=== PATIENT | female | born 1980 | race Caucasian/White ===

== ENCOUNTER 2020-10-22 07:39 | Inpatient (IN) ==
[2020-10-22] MEDS ORDERED: OXYTOCIN 30 UNITS/500 ML BAG IV PRN ×2 (09:51→23:02)
[2020-10-22] MEDS ORDERED: LACTATED RINGER'S 1,000 ML IV PRN (09:51)
[2020-10-22 10:20] LABS: Hematocrit (blood only) 37.8 % (37-47); Hemoglobin 12.9 g/dL (12.0-16.0); Mean Corpuscular Hemoglobin 29.5 pg (25-34); Mean Corpuscular Hgb Conc 34.1 g/dL (32-36); Mean Corpuscular Volume 86.3 fL (80-100); Mean Platelet Volume 10.2 fL (7.4-10.4); Platelet Count 201 K/uL (130-400); Red Blood Count 4.38 M/uL (4.2-5.4); White Blood Count 5.69 K/uL (4.8-10.8)
--- NOTE | 2020-10-22 10:49 | Ultrasound Report ---
ULTRASOUND LIMITED CLINICAL HISTORY: Assess viability. COMPARISON STUDY: No priors. FINDINGS: Real-time grayscale and color Doppler sonography of the fetus and gravid uterus is performe d to assess for viability. There is a single intrauterine gestation. The femoral length measures 2.0 cm, corresponding to an estimated age of 16 weeks 0 days. No cardiac activity is identified. No movement is seen. The placenta is posterior and normal as visualized. The amniotic fluid volum e is grossly normal. IMPRESSION: There is a single intrauterine gestation as above. No movement or cardiac activity is arun ntified consistent with demise. Electronically signed by: Natan Wyman M.D. 10/22/2020 10:48 AM
[2020-10-22] MEDS: miSOPROStoL 200 MCG TAB PV SCH ×3 (11:39→20:15)
--- NOTE | 2020-10-22 12:05 | History & Physical Report ---
Date of Service October 22, 2020 Assessment & Plan (1) demise before 20 weeks with retention of fetus: Plan: Will start induction of labor with Cytotec 400 mcg vaginally every four hours Discussed risks, benefits and complications with using Prostaglandins/Cytotec with patient and Discussed option for D&E with patient as well Admission and Anticipated Discharge Date Admission Date: October 22, 2020 History of Present Illness Chief Complaint: demise Primary Care Provider: Aishwarya Sinclair, DO 40 F [id number] at 17 weeks by dates and 16 weeks by ultrasound that confirms demise. Patient seen yesterday in the office for her routine appointment where provider unable to hear FHT by doppler. Ultrasound done yesterday confirmed demise. Repeat ultrasound was done this morning as requested by patient confirms finding of demise as well. Allergies Allergy/AdvReac Type Severity Reaction Status Date / Time No Known Allergies Allergy Unverified 08/24/15 20:10 Home Medications Medication Instructions Recorded Confirmed Type Multivit/Min/Iron/Fol Ac/Pren 1 tab PO QAM #0 08/23/08 History ( Vitamin) Ibuprofen 600 mg PO Q4H PRN #40 tab 08/27/15 Rx OXYCODONE/ACETAMINOPHEN 5MG/325MG 1 - 2 tab PO Q4H PRN #30 tab 08/27/15 Rx (ROXICET 5MG/325MG) Patient History Medical History Hyperprolactinoma Surgical History Previous section Social History Smoking Status: Never smoker Hx Alcohol Use: No Hx Substance Use: No Preferred Language: Chinese Beliefs That Will Affect Care: None marital status: Current Living Situation: Family Other Information That Helps Us Care for You: No Feels Safe at Home: Yes Safety Concerns: Feels Safe At This Time Assistive Devices: None OB History x1 C/S x2 [employer] History none Review of Systems All systems reviewed & are unremarkable except as noted in HPI & below Physical Exam Constitutional: WD/WN, vitals as above + obese and comfortable Cardiovascular: RRR, no murmur, no edema Gastrointestinal (Abdomen): normal bowel sounds, soft, nontender, no hepatosplenomegaly Skin: no rashes, warm and dry Genitourinary: no vaginal lesions, no adnexal mass normal external appearance Manual OB Exam: + cervical dilation (cervix not dilated and thick) and + station high abdomen is soft and non-tender Results & Data ([facility]) Vital Signs (Past 12 Hours) Vital Signs Temp Pulse Resp BP 10/22/20 11:43 81 125/80 10/22/20 08:16 94 H 123/64 10/22/20 07:57 36.8 C 94 H 20 123/64 Results OB Ultrasound: Obstetrics Ultrasound 10/22/20 Code Status & VTE Plan VTE Prophylaxis Plan VTE Prophylaxis will be ordered: No
--- NOTE | 2020-10-22 16:16 | Labor Progress Brief Note ---
Date of Service October 22, 2020 Assessment & Plan Admission and Anticipated Discharge Date Admission Date: October 22, 2020 Physical Exam Physical Exam: cervix closed and thick. Cytotec 400 mcg placed vaginally Constitutional: WD/WN, vitals as above Results & Data ([facility]) Vital Signs (Past 12 Hours) Vital Signs Temp Pulse Resp BP 10/22/20 16:08 93 H 130/78 10/22/20 11:43 81 125/80 10/22/20 08:16 94 H 123/64 10/22/20 07:57 36.8 C 94 H 20 123/64
[2020-10-22] MEDS ORDERED: BUTORPHANOL TARTRATE 1 MG/ML VIAL IV STA (20:20)
--- NOTE | 2020-10-22 20:22 | Labor Progress Brief Note ---
Date of Service October 22, 2020 Assessment & Plan Admission and Anticipated Discharge Date Admission Date: October 22, 2020 Physical Exam Genitourinary: Manual OB Exam: + cervical dilation 2 cm and + cervical effacement (Cytotec 200 mcg placed vaginally. some bloody show noted on exam) 50% Results & Data ([facility]) Vital Signs (Past 12 Hours) Vital Signs Temp Pulse Resp BP 10/22/20 19:06 36.6 C 88 16 118/77 10/22/20 19:04 88 118/77 10/22/20 16:08 37.2 C 93 H 16 130/78 10/22/20 11:43 81 125/80
[2020-10-22] MEDS ORDERED: BUTORPHANOL TARTRATE 1 MG/ML VIAL ONE (20:23)
--- NOTE | 2020-10-22 22:34 | Delivery Summary ---
Vaginal Delivery Summary Date of Service October 22, 2020 Vaginal Delivery Summary Delivery Note Patient had spontaneous vaginal delivery of stillborn fetus appearing to be a male by my exam. Fetus was macerated and appeared to have a while ago. Cord detached from placenta and after almost an hour waiting for delivery of placenta I placed a ring forceps into cervix where placenta was noted but it appeared top come out in pieces. At this point a decision was then made to bring the patient down to the OR to do a D&C for retained placenta. Patient consents obtained and she is not experiencing any heavy bleeding and is stable at this time. Final sponge and instrument count are correct. EBL 100 ml.
--- NOTE | 2020-10-22 22:35 | Labor Progress Brief Note ---
Date of Service October 22, 2020 Assessment & Plan Admission and Anticipated Discharge Date Admission Date: October 22, 2020 Results & Data ([facility]) Vital Signs (Past 12 Hours) Vital Signs Temp Pulse Resp BP 10/22/20 19:06 36.6 C 88 16 118/77 10/22/20 19:04 88 118/77 10/22/20 16:08 37.2 C 93 H 16 130/78 10/22/20 11:43 81 125/80
[2020-10-22] MEDS ORDERED: fentaNYL citrate 100 MCG/2 ML VIAL ONE (23:01)
[2020-10-22] MEDS ORDERED: bisacodyL 10 MG SUPP PR PRN (23:02)
[2020-10-22] MEDS ORDERED: ACETAMINOPHEN 325 MG TAB PO PRN (23:02)
[2020-10-22] MEDS ORDERED: IBUPROFEN 600 MG TAB PO PRN (23:02)
[2020-10-22] MEDS ORDERED: HYDROCORTISONE ACETATE 25 MG SUPP PR PRN (23:02)
--- NOTE | 2020-10-22 23:05 | Post Operative Brief Note ---
Immediate Post Op Note v1 Date of Surgery October 22, 2020 Pre & Post Diagnosis Operation Date: 10/22/20 22:20 Pre-Op Diagnosis: 1. Retained placenta Post-Op Diagnosis: 1. Same I identified the patient and participated in the time-out.: Yes Procedure Operation Date: 10/22/20 22:20 Actual Procedures p Dilation and Curettage - Gonzales Rincon MD Surgeon Gonzales Rincon MD [employer] none Estimated Blood Loss 300 Findings Consistent with Post-Op Diagnosis placenta Fluids LR 1000 ml Anesthesia Type General Complications none Overlapping Procedure I was present for: the critical portions of procedure. I was immediately available: during the entire case. Back up surgeon: was not required during procedure.
[2020-10-22] MEDS ORDERED: miSOPROStoL 200 MCG TAB ONE (23:24)
[2020-10-22] MEDS ORDERED: ONDANSETRON INJ 2 MG/ML 2 ML VIAL ONE (23:30)
[2020-10-22] MEDS ORDERED: LIDOCAINE 2% MPF LOCAL 5 ML VIAL INFIL ONE (23:30)
[2020-10-22] MEDS ORDERED: DIPHTHERIA/TETANUS/PERTUSSIS 0.5 ML SYR/VIAL IM ONE (23:30)
[2020-10-22] MEDS ORDERED: ROCURONIUM BROMIDE 10 MG/ML 5 ML VIAL IV ONE (23:30)
[2020-10-22] MEDS ORDERED: DEXAMETHASONE SOD INJ 4 MG/ML VIAL ONE (23:30)
[2020-10-22] MEDS ORDERED: SUCCINYLCHOLINE CHLORIDE 20 MG/ML 10 ML VIAL IV ONE (23:30)
[2020-10-23] MEDS ORDERED: ATROPINE SULFATE 0.1 MG/ML 10ML SYR IV PRN (00:14)
[2020-10-23] MEDS ORDERED: ePHEDrine sulfate 50 MG/ML AMP IV PRN (00:14)
--- NOTE | 2020-10-23 00:18 | Anesthesiology Progress Note ---
Date of Service October 23, 2020 Anesthesia Post Procedure Vital Signs Vital Signs: Temp Pulse Resp BP Pulse Ox 10/23/20 00:14 78 105/63 10/23/20 00:13 81 97 10/23/20 00:10 85 101/65 10/23/20 00:08 88 99 10/23/20 00:04 98 H 87 L 10/23/20 00:03 98 H 99 10/22/20 23:58 90 98 10/22/20 23:55 106 H 167/94 H 10/22/20 22:40 78 111/60 10/22/20 22:10 75 118/75 10/22/20 21:55 73 118/71 10/22/20 21:40 77 128/73 10/22/20 19:06 36.6 C 88 16 118/77 10/22/20 19:04 88 118/77 10/22/20 16:08 37.2 C 93 H 16 130/78 10/22/20 11:43 81 125/80 10/22/20 08:16 94 H 123/64 10/22/20 07:57 36.8 C 94 H 20 123/64 Pain Intensity Bilateral Abdomen: Pain Intensity: 1 Transfer of Care Handoff Completed per policy Notes Mental Status: alert / awake / arousable Patient Amnestic to Procedure: Yes Nausea / Vomiting: adequately controlled Pain: adequately controlled Airway Patency, RR, SpO2: stable & adequate BP & HR: stable & adequate Hydration State: stable & adequate Anesthetic Complications: no major complications apparent
--- NOTE | 2020-10-23 00:18 | Anesthesiology Consultation ---
Date of Service October 23, 2020 Assessment & Plan (1) Encounter for pre-operative examination: Chart Review Chart Review: Acceptable Risk for Surgery and Patient NOT seen in Pre Admission Testing Consults Requested none ASA ASA2 Proposed Anesthesia Anesthesia Type: General (+RSI) Risk / Benefits Reviewed With: PT / POA / Parent / Guardian, Accepts Plan and Informed Consent Obtained History Surgery Operation Date: 10/22/20 22:20 Proposed Procedures p Labor Delivery Dilation and Curettage - Gonzales Rincon MD Height/Weight Height: 5 ft 7 in Weight: 99.79 kg Allergies Allergy/AdvReac Type Severity Reaction Status Date / Time No Known Allergies Allergy Unverified 10/22/20 12:33 Medications Home Medications Medication Instructions Recorded Confirmed Last Taken Multivit/Min/Iron/Fol Ac/Pren 1 tab PO QAM #0 08/23/08 10/22/20 Unknown ( Vitamin) Active Medications Generic Name Dose Route Start Last Admin Trade Name Freq PRN Reason Stop Dose Admin Lactated Ringer's 1,000 mls @ 125 mls/hr 10/22/20 09:51 10/22/20 22:21 Lr IV 10/24/20 09:50 125 mls/hr .Q8H PRN Administration L&D Protocol Protocol Oxytocin 30 units in 500 mls @ 333.333 mls/hr 10/22/20 09:51 10/22/20 22:25 Pitocin IV 11/21/20 09:50 Infused .Q1H30M PRN Titration Bleeding Control Protocol 20 UNITS/HR NPO Date Last Intake of Fluids: 10/22/20 Time Last Intake of Fluids: 19:30 Date Last Intake of Solids: 10/22/20 Time Last Intake of Solids: 18:30 Last Intake of Solids Comment: full dinner Past Medical History Medical History Hyperprolactinoma Exercise / Class Metabolic Activity II 4-5 Yardwork/Stairs/Walk up hill Past Surgical History Surgical History Previous section Past Anesthesia History No Hx of Anesthesia Complications and No Family Hx of Anesthesia Complications History of PONV No Hx of PONV and No Hx of Motion Sickness Social History Smoking Status: Never smoker Hx Alcohol Use: No Hx Substance Use: No substance use type: does not use Physical Exam Vital Signs Last Vital Signs Temp 36.6 C 10/22/20 19:06 Pulse 78 10/23/20 00:14 Resp 16 10/22/20 19:06 BP 105/63 10/23/20 00:14 Pulse Ox 97 10/23/20 00:13 ENMT Mouth: no dentition abnormality Thyromental Distance: > or= 3.5 Finger Breadths Mallampati Class: II Neck normal visual inspection Respiratory normal respiratory effort Auscultation: lungs clear to auscultation bilaterally Cardiovascular Rate/Rhythm: regular rate and regular rhythm Psychiatric Orientation: alert Testing Laboratory Results 10/22/20 10:00
--- NOTE | 2020-10-23 05:39 | Operative Report (OR) ---
DATE OF SURGERY: 10/23/2020. PREOPERATIVE DIAGNOSIS: Retained placenta. POSTOPERATIVE DIAGNOSIS: Retained placenta. PROCEDURE: Dilation and curettage. SURGEON: Gonzales Rincon MD STUDIO MUSICIAN: None. ANESTHESIA: General. COMPLICATIONS: None. FINDINGS: Retained placenta. ESTIMATED BLOOD LOSS: 300 mL. TOTAL FLUIDS: 1000 mL. CLINICAL HISTORY: The patient is a 40-year-old female, para 3-0-0-3, at approximately 16-17 weeks' gestation with intrauterine demise confirmed by ultrasound. She had a spontaneous delivery of demise after Cytotec induction. The cord was very, very thin and avulsed from the placenta. The placenta was unable to be delivered vaginally after waiting a significant amount of time. The patient was brought to the OR for a D and C. DESCRIPTION OF PROCEDURE: Under satisfactory general anesthesia, the patient was prepped and draped in the usual sterile fashion. A time out was done. Weighted speculum was placed in the posterior vault of the vagina. A ring forceps was placed on the anterior lip of the cervix. Ring forceps inserted into the cervical canal into the uterus, removing piecemeal parts of the placenta. A large curette was then introduced, curetting and removing a larger portion of the placenta. Ring was then introduced and the majority of the placenta was intact. At the end of the procedure, 800 mcg of Cytotec was placed rectally and Pitocin was started in the IV. No active bleeding was noted at the end of the procedure. All remaining instruments were accounted for and removed. The final sponge, needle, and instrument count were found to be correct. EBL 300 mL. After all remaining instruments were removed from the vagina, the patient was then placed supine on a stretcher and taken to recovery in labor and delivery in stable condition. Job ID: [id number] [facility]
[2020-10-23 06:54] LABS: Hematocrit (blood only) 36.3 % (37-47); Hemoglobin 12.5 g/dL (12.0-16.0); Mean Corpuscular Hemoglobin 29.1 pg (25-34); Mean Corpuscular Hgb Conc 34.4 g/dL (32-36); Mean Corpuscular Volume 84.6 fL (80-100); Platelet Count 198 K/uL (130-400); RDW Coefficient of Variation 13.8 % (11.5-14.5); RDW Standard Deviation 42.3 fL (36.4-46.3); Red Blood Count 4.29 M/uL (4.2-5.4); White Blood Count 9.18 K/uL (4.8-10.8)
[2020-10-23] MEDS ORDERED: FERROUS SULFATE 325 MG TAB PO SCH (08:00)
[2020-10-23] MEDS ORDERED: DOCUSATE SODIUM 100 MG CAP PO SCH (08:00)
[2020-10-23] MEDS ORDERED: PRENATAL VITAMIN 1 TAB PO SCH (08:00)
[2020-10-23] MEDS ORDERED: NON-FORMULARY MEDICATION (Multivit/Min/Iron/Fol Ac/Pren (Prenatal Vitamin) tablet) PO SCH (09:00)
--- NOTE | 2020-10-23 09:20 | Obstetrical Progress Note ---
Date of Service October 23, 2020 Assessment & Plan Admission and Anticipated Discharge Date Admission Date: October 22, 2020 Subjective Patient is seen and examined. She feels well, no complaints. Just sad Ambulating without dizziness Voiding without difficulty Tolerating regular diet with out N&V Bleeding is minimal No fever/ chills/ CP/ SOB/ N&V/ Leg pain Vital Signs Temp Pulse Resp BP Pulse Ox 10/23/20 07:59 36.9 C 76 18 101/62 10/23/20 07:32 76 101/62 10/23/20 06:08 72 97 10/23/20 06:05 79 103/66 10/23/20 06:03 76 98 10/23/20 05:58 74 96 10/23/20 05:53 71 97 10/23/20 05:48 72 96 10/23/20 05:43 73 97 10/23/20 05:38 69 97 10/23/20 05:35 71 108/66 10/23/20 05:33 78 97 10/23/20 05:28 72 98 10/23/20 05:25 97 H 92 10/23/20 05:23 80 97 10/23/20 05:18 74 97 10/23/20 05:13 73 96 10/23/20 05:08 78 97 10/23/20 05:05 69 106/65 10/23/20 05:03 75 97 10/23/20 05:00 36.8 C 16 10/23/20 04:58 76 97 10/23/20 04:53 75 97 10/23/20 04:48 78 96 10/23/20 04:43 71 97 10/23/20 04:38 74 97 10/23/20 04:35 70 104/63 10/23/20 04:33 67 97 10/23/20 04:28 66 97 10/23/20 04:23 68 97 10/23/20 04:18 69 97 10/23/20 04:13 69 97 10/23/20 04:08 68 97 10/23/20 04:05 71 98/63 L 10/23/20 04:03 71 96 10/23/20 03:58 70 96 10/23/20 03:53 69 96 10/23/20 03:48 71 96 10/23/20 03:43 69 97 07/24/21 03:38 72 96 0724/21 03:35 69 100/63 07/24/21 03:33 72 96 0724/21 03:28 73 96 21 03:23 77 97 07/21 03:18 73 96 0724/21 03:13 69 96 24/21 03:08 73 96 24/21 03:05 72 103/64 24/21 03:03 68 97 21 02:58 72 96 21 02:53 70 96 24/21 02:48 73 96 21 02:43 70 96 24/21 02:38 73 96 21 02:35 69 101/62 21 02:33 71 95 10/23/20 02:28 36.8 C 71 16 95 10/23/20 02:23 69 96 21 02:18 76 96 10/23/20 02:13 73 95 10/23/20 02:08 78 95 10/23/20 02:04 78 105/62 24/21 02:03 74 94 2421 01:58 77 95 0724/21 01:54 70 107/64 24/21 01:53 74 94 0724/21 01:48 72 95 24/21 01:47 74 94 24/21 01:44 75 103/63 24/21 01:43 73 95 24/21 01:40 72 94 24/21 01:38 75 95 2421 01:34 73 107/65 0724/21 01:33 74 94 0724/21 01:28 75 95 0724/21 01:26 74 94 0724/21 01:25 16 24/21 01:24 73 100/63 0724/21 01:23 77 95 0724/21 01:18 80 95 0724/21 01:14 76 102/64 0724/21 01:13 77 95 0724/21 01:08 80 95 0724/21 01:04 82 104/68 0724/21 01:03 83 97 0724/21 00:58 78 95 0724/21 00:55 16 07/24/21 00:54 76 103/64 10/23/20 00:53 80 95 10/23/20 00:48 91 H 96 10/23/20 00:44 81 103/65 10/23/20 00:43 84 96 10/23/20 00:40 16 10/23/20 00:38 83 95 10/23/20 00:34 83 106/65 10/23/20 00:33 84 95 10/23/20 00:28 87 96 10/23/20 00:25 99 H 16 92 10/23/20 00:24 85 104/60 10/23/20 00:23 84 97 10/23/20 00:18 80 96 10/23/20 00:14 78 105/63 10/23/20 00:13 81 97 10/23/20 00:10 85 101/65 10/23/20 00:08 88 99 10/23/20 00:04 98 H 87 L 10/23/20 00:03 98 H 99 10/22/20 23:58 90 98 10/22/20 23:55 36.9 C 106 H 16 167/94 H 10/22/20 22:40 78 111/60 10/22/20 22:10 75 118/75 10/22/20 21:55 73 118/71 10/22/20 21:40 77 128/73 Lab Results 10/22/20 10/22/20 10/22/20 Range/Units 10:00 Unknown Unknown WBC 5.69 (4.8-10.8) K/uL RBC 4.38 (4.2-5.4) M/uL Hgb 12.9 (12.0-16.0) g/dL Hct 37.8 (37-47) % MCV 86.3 (80-100) fL MCH 29.5 (25-34) pg MCHC 34.1 (32-36) g/dL RDW Std Deviation 44.0 (36.4-46.3) fL RDW Coeff of Eliza 14.0 (11.5-14.5) % Plt Count 201 (130-400) K/uL MPV 10.2 (7.4-10.4) fL COVID-19 Eval Order Covid19 IDNow atMRIC SARS-CoV-2, RNA, NAAT NEGATIVE (NEGATIVE) 10/23/20 Range/Units 06:30 WBC 9.18 (4.8-10.8) K/uL RBC 4.29 (4.2-5.4) M/uL Hgb 12.5 (12.0-16.0) g/dL Hct 36.3 L (37-47) % MCV 84.6 (80-100) fL MCH 29.1 (25-34) pg MCHC 34.4 (32-36) g/dL RDW Std Deviation 42.3 (36.4-46.3) fL RDW Coeff of Eliza 13.8 (11.5-14.5) % Plt Count 198 (130-400) K/uL MPV 10.0 (7.4-10.4) fL COVID-19 Eval Order SARS-CoV-2, RNA, NAAT (NEGATIVE) PE: General: Alert, orientedx3, NAD, appropriately sad Abd: soft, NT, Perineum intact, Lochia rubra minimal Ext; NT, no edema AP: 40 yo s/p IOL for IUFD, curettage, ppd# 1 VSS Afebrile doing well Desires d/c home Discussed when to call All questions were answered D/C home , f/u in office Results & Data ([facility]) Vital Signs (Past 12 Hours) Vital Signs Temp Pulse Resp BP Pulse Ox 10/23/20 07:59 36.9 C 76 18 101/62 10/23/20 07:32 76 101/62 10/23/20 06:08 72 97 10/23/20 06:05 79 103/66 10/23/20 06:03 76 98 10/23/20 05:58 74 96 10/23/20 05:53 71 97 10/23/20 05:48 72 96 10/23/20 05:43 73 97 10/23/20 05:38 69 97 10/23/20 05:35 71 108/66 10/23/20 05:33 78 97 10/23/20 05:28 72 98 10/23/20 05:25 97 H 92 10/23/20 05:23 80 97 10/23/20 05:18 74 97 10/23/20 05:13 73 96 10/23/20 05:08 78 97 07/24/21 05:05 69 106/65 10/23/20 05:03 75 97 10/23/20 05:00 36.8 C 16 10/23/20 04:58 76 97 10/23/20 04:53 75 97 10/23/20 04:48 78 96 10/23/20 04:43 71 97 10/23/20 04:38 74 97 10/23/20 04:35 70 104/63 10/23/20 04:33 67 97 10/23/20 04:28 66 97 10/23/20 04:23 68 97 10/23/20 04:18 69 97 10/23/20 04:13 69 97 10/23/20 04:08 68 97 10/23/20 04:05 71 98/63 L 10/23/20 04:03 71 96 10/23/20 03:58 70 96 10/23/20 03:53 69 96 10/23/20 03:48 71 96 10/23/20 03:43 69 97 10/23/20 03:38 72 96 10/23/20 03:35 69 100/63 10/23/20 03:33 72 96 10/23/20 03:28 73 96 10/23/20 03:23 77 97 10/23/20 03:18 73 96 10/23/20 03:13 69 96 10/23/20 03:08 73 96 10/23/20 03:05 72 103/64 10/23/20 03:03 68 97 10/23/20 02:58 72 96 10/23/20 02:53 70 96 10/23/20 02:48 73 96 10/23/20 02:43 70 96 10/23/20 02:38 73 96 10/23/20 02:35 69 101/62 10/23/20 02:33 71 95 10/23/20 02:28 36.8 C 71 16 95 10/23/20 02:23 69 96 10/23/20 02:18 76 96 10/23/20 02:13 73 95 10/23/20 02:08 78 95 10/23/20 02:04 78 105/62 10/23/20 02:03 74 94 21 01:58 77 95 21 01:54 70 107/64 10/23/20 01:53 74 94 10/23/20 01:48 72 95 10/23/20 01:47 74 94 10/23/20 01:44 75 103/63 10/23/20 01:43 73 95 10/23/20 01:40 72 94 10/23/20 01:38 75 95 10/23/20 01:34 73 107/65 10/23/20 01:33 74 94 10/23/20 01:28 75 95 10/23/20 01:26 74 94 10/23/20 01:25 16 10/23/20 01:24 73 100/63 10/23/20 01:23 77 95 10/23/20 01:18 80 95 10/23/20 01:14 76 102/64 10/23/20 01:13 77 95 10/23/20 01:08 80 95 10/23/20 01:04 82 104/68 10/23/20 01:03 83 97 10/23/20 00:58 78 95 10/23/20 00:55 16 10/23/20 00:54 76 103/64 10/23/20 00:53 80 95 10/23/20 00:48 91 H 96 10/23/20 00:44 81 103/65 10/23/20 00:43 84 96 10/23/20 00:40 16 10/23/20 00:38 83 95 10/23/20 00:34 83 106/65 10/23/20 00:33 84 95 10/23/20 00:28 87 96 10/23/20 00:25 99 H 16 92 10/23/20 00:24 85 104/60 10/23/20 00:23 84 97 10/23/20 00:18 80 96 10/23/20 00:14 78 105/63 10/23/20 00:13 81 97 10/23/20 00:10 85 101/65 10/23/20 00:08 88 99 10/23/20 00:04 98 H 87 L 10/23/20 00:03 98 H 99 10/22/20 23:58 90 98 10/22/20 23:55 36.9 C 106 H 16 167/94 H 10/22/20 22:40 78 111/60 10/22/20 22:10 75 118/75 10/22/20 21:55 73 118/71 10/22/20 21:40 77 128/73
[2020-10-23] MEDS ORDERED: bisacodyL 5 MG TABEC PO SCH (20:00)
== END 2020-10-23 12:03 | disposition home or self-care (01) | DRG 807 ==
LOC: 4S1 07:39

== ENCOUNTER 2021-11-29 07:30 | Inpatient (IN) ==
--- NOTE | 2021-11-21 13:55 | Anesthesiology Consultation ---
Date of Service November 21, 2021 Assessment & Plan (1) Encounter for pre-operative examination: Chart Review Chart Review: order entry representative initiated Per nursing assessment 11/21/21, patient denies any recent travel. No known Covid positive exposures or Covid related symptoms. Pt tested Covid positive with home test 10/18/21- Covid positive within 11-90 days of surgery. Pt is fully vaccinated for Covid. Preop Covid testing scheduled 11/26/21; pt was also encouraged to call surgeon's office to possibly get PCR test prior to that time to confirm if still Covid positive. If pt positive- will need rescheduled 11 days from Covid positive PCR test or treated as Covid positive pathway. Pt last seen by cardio (telemedicine visit)) 10/20/21= seen for follow up visit. Hx of symptomatic PVCs- increased in and hyperprolactinemia. Planning on upcoming - palpitations improved recently. Increase in fluids helping wiht symptoms. Reviewed previous Zio monitor and ECHO. Symptoms improved with lifestyle changes. Discussed risk vs benefit of medications- cardio does not believe medication necessary at this time- especially with improvement in symptoms. Pt should follow up if increase in palpitations occur . Pt tested Covid positive 10/18/21 with home test- symptoms of congestion and fatigue. Follow up in six months D&C 10/22/20= Done under GA with Grade 1 view with Jones #3. ETT #7.0. History Surgery Operation Date: 11/29/21 07:30 Proposed Procedures p Section in LD - Gale Trjuillo MD Height/Weight Height: 5 ft 7 in Weight: 112.945 kg Allergies Allergy/AdvReac Type Severity Reaction Status Date / Time No Known Allergies Allergy Verified 11/21/21 12:37 Medications Home Medications Medication Instructions Recorded Confirmed Last Taken acetaminophen 325 mg tablet 325 mg PO UD PRN Pain 11/04/21 11/21/21 10/14/21 21:00 (Tylenol) fluticasone propionate 50 1 spray intranasal UD PRN 11/21/21 11/21/21 Unknown mcg/actuation nasal Congestion spray,suspension ibuprofen 600 mg tablet 400 - 600 mg PO UD PRN fever or 11/21/21 11/21/21 Unknown pain prenat.vits,vikki,emg-bqcs-uhmvb 1 tab PO QPM 11/21/21 11/21/21 Unknown Past Medical History Medical History (Updated 11/21/21 @ 14:06 by Radha Dunbar PA-C) Exercise-induced asthma HX, TEENAGER History of colon polyps BENIGN History of COVID-19 + HOME TEST OCTOBER 18 2021 Hyperprolactinemia Follows with endocrinology Pituitary tumor PITUITARY MICROADENOMA- UNDER OBSERVATION - NO MEDS SINCE (USUALLY ON CABERGOLINE FOR HYPERPROLACTINEMIA BUT ON HOLD DURING ) PVCs (premature ventricular contractions) HX / FOLLOWS DR PEREA Past Family History Family History Other Family history of colonic polyps Past Surgical History Surgical History History of colonoscopy History of D&C FOR MISCARRIAGE History of lumpectomy of left breast BENIGN Previous section X2 Social History Smoking Status: Never smoker Hx Alcohol Use: No Hx Substance Use: No substance use type: does not use Testing Echocardiogram Date: 11/04/20 EF: 62% LV Function: normal RWMA: + none Other Findings: no LVH or no diastolic dysfunction Mild TR Other Testing Zio monitor 09/28/20= Patient had a min HR of 62 bpm, max HR of 150 bpm, and avg HR of 87bpm. Predominant underlying rhythm was Sinus Rhythm. 2 Supraventricular Tachycardia runs occurred, the run with the fastest interval lasting 6 beats with a max rate of 128 bpm, the longest lasting 6 beats with an avg rate of 105 bpm. Isolated SVEs were rare (<1.0%), SVE Couplets were rare (<1.0%), and no SVE Triplets were present. Isolated VEs were rare (<1.0%), VE Couplets were rare (<1.0%), and no VE Triplets were present. MRI Sella Turcica 08/26/19= FINDINGS: The pituitary gland appears to enhance homogeneously on the delayed post gadolinium imaging. Previously described focus of hypoenhancement on the dynamic imaging is not appreciated on the current examination. The infundibulum is midline. Signal within the cavernous sinuses is normal. The optic chiasm is normally positioned. The cavernous carotid flow voids are intact. The visualized brain parenchyma is unremarkable in appearance. The orbits are also unremarkable. There is a small mucous retention cyst at the base of the right maxillary sinus. IMPRESSION" No convincing focal hypoenhancement within the pituitary parenchyma on the current study. Brain MRI 06/11/18= 3 mm lesion in the right pituitary gland is suspicious on dynamic imaging for a pituitary microadenoma. One left pituitary gland paramidline 2 mm focus may also represent additional pituitary microadenoma. Grossly unremarkable whole brain imaging.
[~2021-11-29 07:30] MED LIST: CARBOPROST TROMETHAMINE 250 MCG/ML AMPUL ONE; CITRIC ACID/SODIUM CITRATE 15 ML UDC PO SCH; LACTATED RINGER'S 1,000 ML IV SCH; METHYLERGONOVINE MALEATE 0.2 MG/ML AMP ONE; MoRPHine SULFATE PF 1 MG/ML 10 ML AMP/VIAL ONE; ONDANSETRON INJ 2 MG/ML 2 ML VIAL ONE; PHENYLEPHRINE HCL 10 MG/ML VIAL ONE; ceFAZolin 2,000 MG in SYRINGE 0 ML IV SCH; fentaNYL citrate 100 MCG/2 ML VIAL ONE
--- NOTE | 2021-11-29 09:26 | History & Physical Bridge Note ---
Date of Service November 29, 2021 History & Physical Bridge Note I have examined the patient, reviewed the History & Physical and in the interval since the performance of the History & Physical I have noted the following changes of clinical significance: no changes noted She desires permanent tubal sterilization with Repeat CSection today She signed an informed consent.
[2021-11-29] MEDS ORDERED: SODIUM CHLORIDE 0.9% 250 ML IV PRN (10:08)
[2021-11-29 10:20] LABS: Basophils # (auto) 0.01 K/uL (0-0.2); Basophils % (auto) 0.1 %; Eosinophils % (auto) 1.3 %; Hematocrit (blood only) 35.8 % (34.1-44.9); Hemoglobin 11.6 g/dl (12.0-16.0); Immature Granulocytes # (auto) 0.04 K/uL (0.00-0.02); Immature Granulocytes % (auto) 0.5 %; Lymphocytes # (auto) 1.48 K/uL (1.2-3.4); Lymphocytes % (auto) 19.8 %; Mean Corpuscular Hgb Conc 32.4 g/dL (32.0-36.0); Mean Corpuscular Volume 86.3 fL (80.0-100.0); Mean Platelet Volume 11.7 fL (9.4-12.3); Monocytes # (auto) 0.72 K/uL (0.24-0.82); Monocytes % (auto) 9.6 %; Neutrophils # (auto) 5.14 K/uL (1.4-6.5); Neutrophils % (auto) 68.7 %; Platelet Count 142 K/uL (130-400); RDW Coefficient of Variation 15.9 % (11.5-14.5); RDW Standard Deviation 49.1 fL (36.4-46.3); Red Blood Count 4.15 M/uL (3.93-5.22); White Blood Count 7.49 K/ul (4.8-10.8)
[2021-11-29] MEDS ORDERED: MEPERIDINE HCL 25 MG/ML CARP/VIAL IV PRN (11:24)
[2021-11-29] MEDS ORDERED: ONDANSETRON INJ 2 MG/ML 2 ML VIAL IV PRN ×2 (11:24→12:17)
[2021-11-29] MEDS ORDERED: LACTATED RINGER'S 500 ML IV PRN (11:24)
[2021-11-29] MEDS ORDERED: NALOXONE HCL 1 MG in SODIUM CHLORIDE 0.9% 1000ML 1,000 ML IV PRN (11:24)
[2021-11-29] MEDS ORDERED: MoRPHine SULFATE PF 1 MG/ML 10 ML AMP/VIAL INT SPINAL ONE (11:24)
[2021-11-29] MEDS ORDERED: diphenhydrAMINE 50 MG/ML VIAL IV PRN (11:24)
[2021-11-29] MEDS ORDERED: NALOXONE HCL 0.4 MG/1 ML VIAL/CARP IV PRN (11:24)
[2021-11-29] MEDS ORDERED: NALOXONE HCL 0.08 MG in SYRINGE 1.8 ML IV PRN (11:24)
[2021-11-29] MEDS ORDERED: ePHEDrine sulfate 50 MG/ML AMP IV PRN (11:24)
[2021-11-29] MEDS ORDERED: NALBUPHINE HCL INJ 10 MG/ML AMP IV PRN (11:24)
[2021-11-29] MEDS ORDERED: DC INTRASPINAL MORPHINE SCH (11:30)
[2021-11-29] MEDS ORDERED: SODIUM CHLORIDE 0.9% 1000ML 1,000 ML IV SCH (11:30)
[2021-11-29] MEDS ORDERED: NO NARCOTICS OR SEDATIVES SCH (11:30)
--- NOTE | 2021-11-29 12:16 | Post Operative Brief Note ---
Immediate Post Op Note v1 Date of Surgery November 29, 2021 Pre & Post Diagnosis Operation Date: 11/29/21 09:20 Pre-Op Diagnosis: History of Prior Post-Op Diagnosis: History of Prior I identified the patient and participated in the time-out.: Yes Procedure Operation Date: 11/29/21 09:20 Actual Procedures p Repeat Section live male child at 1111(Bilateral) and BTL - Gale Trujillo MD Surgeon Gale Trujillo MD Hand Painter CLAUDIA Armstrong Estimated Blood Loss 500 Findings Consistent with Post-Op Diagnosis Drains Tony Catheter (intact and draining clear yellow urine prior to procedure, anesthesia to monitor intraoperative ) Complications none
[2021-11-29] MEDS ORDERED: BENZOCAINE 20% AER SPR 82.5 GM CAN EXT PRN (12:17)
[2021-11-29] MEDS ORDERED: MAGNESIUM HYDROXIDE SUSP 30 ML UDC PO PRN (12:17)
[2021-11-29] MEDS ORDERED: MEASLES, MUMPS & RUBELLA VIRUS VIAL SQ ONE (12:17)
[2021-11-29] MEDS ORDERED: HYDROCORTISONE ACETATE 25 MG SUPP PR PRN (12:17)
[2021-11-29] MEDS ORDERED: SENNA 8.6 MG TAB PO PRN (12:17)
[2021-11-29] MEDS ORDERED: DIPHTHERIA/TETANUS/PERTUSSIS 0.5 ML SYR/VIAL IM ONE (12:17)
[2021-11-29] MEDS ORDERED: IBUPROFEN 600 MG TAB PO PRN (12:17)
[2021-11-29] MEDS ORDERED: LACTATED RINGER'S 1,000 ML IV PRN (12:30)
[2021-11-29] MEDS ORDERED: OXYTOCIN 20 UNITS in D5W AND LACTATED RINGERS 1,000 ML IV SCH (12:30)
[2021-11-29] MEDS ORDERED: FLUTICASONE PROPIONATE NA SPR 16 GM BTL PRN (12:38)
[2021-11-29] MEDS: KETOROLAC 30 MG/ML VIAL IV PRN ×2 (13:19→23:15)
--- NOTE | 2021-11-29 13:32 | Operative Report (OR) ---
DATE OF SURGERY: 11/29/2021. PREOPERATIVE DIAGNOSES: The patient is a 41-year-old G5, P3-0-1-3, at 39.5 weeks of gestation with history of prior two C-sections and macrosomia. Multiparity, AMA, desires permanent sterilization with tubal ligation. POSTOPERATIVE DIAGNOSES: The patient is a 41-year-old G5, P3-0-1-3, at 39.5 weeks of gestation with history of prior two C-sections and macrosomia. Multiparity, AMA, desires permanent sterilization with tubal ligation. PROCEDURE: Repeat low transverse with Pfannenstiel skin incision and bilateral tubal ligation with Kiran method. SURGEON: Gale Trujillo MD RAG COLLECTOR: CLAUDIA Armstrong ESTIMATED BLOOD LOSS: 500 mL. DRAINS: Tony catheter drained 200 mL of clear urine. COMPLICATIONS: None. ANESTHESIA: Spinal. ANESTHESIOLOGIST: Dr. Holden. FINDINGS: Baby was a viable male infant delivered at 11:11 a.m. Apgars were 9/9 and weight is 4644 grams. Maternal findings, scarring from prior surgery. Otherwise, normal uterus, fallopian tubes, and ovaries. DESCRIPTION OF PROCEDURE: The patient was taken to the operating room where spinal anesthesia was given without difficulty. She was placed in dorsal supine position with a leftward tilt. She was prepared and draped in the usual sterile fashion. A Pfannenstiel skin incision was made, carried through to the underlying layer of fascia with the Bovie. Fascia was incised in the midline and incision was extended laterally with the help of Hansen scissors and the rectus fascial edges were grasped with two Juan clamps, elevated, and underlying rectus muscles were dissected off sharply with Hansen scissors, and the tip of Bovie, on upper and lower sides. Rectus muscles were in the midline and it was incised with Hansen scissors upwards and downwards with good visualization of the bladder and our fingers were placed under the rectus muscles to make sure there was no bowel under it and then the incision was stretched manually. Bladder blade was inserted. Vesicouterine peritoneum was identified, grasped with pickups, and entered sharply with Metzenbaum scissors. Bladder flap was created digitally and bladder blade was reinserted. Lower uterine segment was thin, but intact. It was incised in a transverse fashion. Incision was extended laterally with the help of fingers. Membranes were ruptured. Clear fluid was obtained and then the baby's head was delivered without difficulty. There was a nuchal cord around the neck x1, which was reduced. Shoulders were delivered with minimal traction and the body without difficulty. Mouth and nose were suctioned. Cord was clamped x2 and cut at 1 minute delay. Baby was vigorously moving and crying at that point. The baby was handed off to the waiting pediatric team with Dr. Pardo. Placenta was delivered manually as intact and complete. Uterus was exteriorized and cleared of all clots and debris. This uterine incision was repaired with 0 Vicryl in a running locked fashion. A second imbricating layer was placed with another 0 Vicryl in a running locked fashion and there was oozing on the middle of the incision, which was controlled with [id number] stitches with 0 Vicryl. Excellent hemostasis was achieved. The right fallopian tube was grasped with two Hamden clamps. Mesosalpinx was entered with 2-0 plain catgut and then it was tied around the Julisa clamp forming a loop. Another tie was placed under the first tie / under the loop and then about 3-4 cm fallopian tubes were excised and sent to Pathology. It was hemostatic. Then the left tube was grasped with two Julisa clamps and the mesosalpinx was entered with 2-0 plain catgut and then it was tied around the tube and the loop was made and tied again under the first tie and then again 3-4 cm part of tube was resected and sent to the Pathology, and it was hemostatic. Uterus was returned to the abdomen. Pelvis was irrigated with warm normal saline and suctioned. Incision was checked to be again hemostatic. Fallopian tubes were also checked to be again hemostatic and intact. Then the parietal peritoneum was attached to the rectus muscles. Both were reapproximated in a bulk manner with a 3-0 Vicryl in a running fashion. Excellent hemostasis was achieved and then the rectus fascia was reapproximated with #1 Vicryl in a running fashion starting from both corners and finishing in the midline. The subcuticular fat tissue was brought together with 3-0 Vicryl. Skin was closed with sean. The patient tolerated the procedure well. Sponge, lap, needle count was correct x3. She received 2 g of cefazolin before surgery. No complications happened. I was present during whole procedure. She was taken to recovery room in stable condition. Job ID: [id number] [facility]
--- NOTE | 2021-11-29 14:03 | Anesthesiology Progress Note ---
Date of Service November 29, 2021 Anesthesia Post Procedure Vital Signs Vital Signs: Temp Pulse Resp BP Pulse Ox 11/29/21 13:15 18 11/29/21 13:05 16 11/29/21 12:55 18 11/29/21 12:45 18 11/29/21 12:35 18 11/29/21 12:25 18 11/29/21 08:19 97.5 F L 18 11/29/21 13:59 68 96 11/29/21 13:54 75 108/70 97 11/29/21 13:49 66 97 11/29/21 13:44 70 107/65 97 11/29/21 13:39 70 97 11/29/21 13:34 68 111/72 98 11/29/21 13:29 63 97 11/29/21 13:24 66 112/74 99 11/29/21 13:19 67 97 11/29/21 13:14 69 109/79 97 11/29/21 13:09 72 97 11/29/21 13:04 75 105/79 95 11/29/21 12:59 76 96 11/29/21 12:55 68 140/64 11/29/21 12:54 71 97 11/29/21 12:49 73 97 11/29/21 12:44 72 113/66 97 11/29/21 12:39 73 97 11/29/21 12:34 81 116/61 11/29/21 12:24 81 113/59 L 11/29/21 12:20 81 97 11/29/21 12:15 97 11/29/21 12:15 73 11/29/21 12:15 74 115/59 L 11/29/21 07:58 93 H 118/80 Pain Intensity Bilateral Abdomen: Pain Intensity: 3 Transfer of Care Handoff Completed per policy Notes Mental Status: alert / awake / arousable and participated in evaluation Nausea / Vomiting: adequately controlled Pain: adequately controlled Airway Patency, RR, SpO2: stable & adequate BP & HR: stable & adequate Hydration State: stable & adequate Neuraxial Anesthesia: was administered and sensory block is resolving Anesthetic Complications: no major complications apparent and Pt Satisfied with anesthetic care
[2021-11-29] MEDS ORDERED: LACTATED RINGER'S 500 ML IV ONE (14:26)
[2021-11-29] MEDS: SIMETHICONE 80 MG CHEW PO SCH ×3 (14:33→21:19)
[2021-11-29] MEDS ORDERED: OXYTOCIN 20 UNITS in LACTATED RINGER'S 1,000 ML IV SCH (20:30)
[2021-11-29] MEDS: DOCUSATE SODIUM 100 MG CAP PO SCH (21:19)
[2021-11-30] MEDS: KETOROLAC 30 MG/ML VIAL IV PRN (05:17)
[2021-11-30] MEDS ORDERED: diphenhydrAMINE Capsule 25 MG CAP PO PRN (05:25)
[2021-11-30] MEDS ORDERED: KETOROLAC 30 MG/ML VIAL IV PRN (05:25)
[2021-11-30] MEDS ORDERED: diphenhydrAMINE 50 MG/ML VIAL IV PRN (05:25)
[2021-11-30] MEDS ORDERED: MEPERIDINE HCL 50 MG/ML CARP IV PRN (05:25)
[2021-11-30] MEDS ORDERED: PROMETHAZINE HCL 25 MG in SODIUM CHLORIDE 0.9% 50 ML IV PRN (05:25)
[2021-11-30 06:58] LABS: Basophils # (auto) 0.02 K/uL (0-0.2); Basophils % (auto) 0.3 %; Eosinophils # (auto) 0.11 K/uL (0-0.50); Eosinophils % (auto) 1.5 %; Hematocrit (blood only) 28.8 % (34.1-44.9); Hemoglobin 9.5 g/dl (12.0-16.0); Immature Granulocytes # (auto) 0.03 K/uL (0.00-0.02); Immature Granulocytes % (auto) 0.4 %; Lymphocytes # (auto) 0.81 K/uL (1.2-3.4); Lymphocytes % (auto) 11.3 %; Mean Corpuscular Hemoglobin 27.9 pg (25.0-34.0); Mean Corpuscular Volume 84.7 fL (80.0-100.0); Mean Platelet Volume 11.5 fL (9.4-12.3); Monocytes # (auto) 0.55 K/uL (0.24-0.82); Monocytes % (auto) 7.6 %; Neutrophils # (auto) 5.67 K/uL (1.4-6.5); Neutrophils % (auto) 78.9 %; Platelet Count 120 K/uL (130-400); RDW Coefficient of Variation 15.9 % (11.5-14.5); RDW Standard Deviation 47.9 fL (36.4-46.3); White Blood Count 7.19 K/ul (4.8-10.8)
[2021-11-30] MEDS: DOCUSATE SODIUM 100 MG CAP PO SCH ×2 (08:25→20:27)
[2021-11-30] MEDS: SIMETHICONE 80 MG CHEW PO SCH ×4 (08:25→20:28)
[2021-11-30] MEDS: PRENATAL VITAMIN 1 TAB PO SCH (08:25)
[2021-11-30] MEDS: FERROUS SULFATE 325 MG TAB PO SCH (08:25)
--- NOTE | 2021-11-30 08:55 | Obstetrical Progress Note ---
Date of Service November 30, 2021 Assessment & Plan Admission and Anticipated Discharge Date Admission Date: November 29, 2021 Subjective Patient is seen and examined. She feels well, no complaints. Pain is under control with oral meds. Ambulating without dizziness Voiding without difficulty Tolerating regular diet with out N&V Flatus + BM neg Bleeding is minimal No fever/ chills/ CP/ SOB/ N&V/ Leg pain Breast feeding without problems Vital Signs Temp Pulse Resp BP Pulse Ox O2 Del Method 11/30/21 08:17 37.2 C 97 H 16 95/67 L 95 Room Air 11/30/21 05:39 18 96 11/30/21 03:30 37.2 C 98 H 18 115/74 96 Room Air 11/30/21 04:29 18 96 11/30/21 03:03 18 96 11/30/21 02:00 18 99 11/30/21 01:12 18 99 11/30/21 00:00 18 98 11/29/21 23:42 37.0 C 96 H 18 119/75 97 Room Air 11/29/21 23:42 18 97 11/29/21 22:12 18 97 11/29/21 21:23 18 95 Lab Results 11/29/21 11/29/21 11/30/21 Range/Units 07:42 07:45 06:22 WBC 7.49 7.19 (4.8-10.8) K/ul RBC 4.15 3.40 L (3.93-5.22) M/uL Hgb 11.6 L 9.5 L (12.0-16.0) g/dl Hct 35.8 28.8 L (34.1-44.9) % MCV 86.3 84.7 (80.0-100.0) fL MCH 28.0 27.9 (25.0-34.0) pg MCHC 32.4 33.0 (32.0-36.0) g/dL RDW Std Deviation 49.1 H 47.9 H (36.4-46.3) fL RDW Coeff of Eliza 15.9 H 15.9 H (11.5-14.5) % Plt Count 142 120 L (130-400) K/uL MPV 11.7 11.5 (9.4-12.3) fL Immature Gran % (Auto) 0.5 0.4 % Neut % (Auto) 68.7 78.9 % Lymph % (Auto) 19.8 11.3 % [place] % (Auto) 9.6 7.6 % Eos % (Auto) 1.3 1.5 % Baso % (Auto) 0.1 0.3 % Neut # (Auto) 5.14 5.67 (1.4-6.5) K/uL Lymph # (Auto) 1.48 0.81 L (1.2-3.4) K/uL [place] # (Auto) 0.72 0.55 (0.24-0.82) K/uL Eos # (Auto) 0.10 0.11 (0-0.50) K/uL Baso # (Auto) 0.01 0.02 (0-0.2) K/uL Immature Gran # (Auto) 0.04 H 0.03 H (0.00-0.02) K/uL Blood Type A Positive Antibody Screen NEGATIVE Crossmatch See Detail PE: General: Alert, orientedx3, NAD CVS: S1S2 RRR Lungs; CTAB Abd: soft, NT, ND, BS+, fundus firm, below Umbilicus Incision/ [place]: Clean, dry, intact Perineum intact, Lochia rubra minimal Ext; NT, no edema AP: 41 yo s/p C Section, pod# 1 VSS Afebrile doing well Continue routine postop care Encourage ambulation, PO intake All questions were answered Results & Data ([facility]) Vital Signs (Past 12 Hours) Vital Signs Temp Pulse Resp BP Pulse Ox O2 Del Method 11/30/21 08:17 37.2 C 97 H 16 95/67 L 95 Room Air 11/30/21 05:39 18 96 11/30/21 03:30 37.2 C 98 H 18 115/74 96 Room Air 11/30/21 04:29 18 96 11/30/21 03:03 18 96 11/30/21 02:00 18 99 11/30/21 01:12 18 99 11/30/21 00:00 18 98 11/29/21 23:42 37.0 C 96 H 18 119/75 97 Room Air 11/29/21 23:42 18 97 11/29/21 22:12 18 97 11/29/21 21:23 18 95
[2021-11-30] MEDS: IBUPROFEN 600 MG TAB PO PRN ×3 (11:17→20:27)
[2021-11-30] MEDS: oxyCODONE/ACETAMINOPHEN 5mg/325mg TAB PO PRN ×3 (11:17→20:28)
[2021-11-30] MEDS ORDERED: bisacodyL 5 MG TABEC PO SCH (20:00)
[2021-12-01] MEDS: IBUPROFEN 600 MG TAB PO PRN ×4 (06:08→18:39)
[2021-12-01] MEDS: oxyCODONE/ACETAMINOPHEN 5mg/325mg TAB PO PRN ×4 (06:09→18:40)
[2021-12-01 06:54] LABS: Hematocrit (blood only) 26.9 % (34.1-44.9); Hemoglobin 8.6 g/dl (12.0-16.0)
[2021-12-01] MEDS: SIMETHICONE 80 MG CHEW PO SCH ×2 (08:58→14:11)
[2021-12-01] MEDS: DOCUSATE SODIUM 100 MG CAP PO SCH (08:58)
[2021-12-01] MEDS: FERROUS SULFATE 325 MG TAB PO SCH (08:58)
[2021-12-01] MEDS: PRENATAL VITAMIN 1 TAB PO SCH (08:58)
--- NOTE | 2021-12-01 10:56 | Obstetrical Progress Note ---
Date of Service December 01, 2021 Subjective Ambulation: ambulating normally Voiding: no voiding problems Passing Gas:: Yes Diet Tolerance:: regular diet Feeding Type:: breast feeding Current Pain Level(1-10): 0 unsure about going home today Physical Exam Constitutional WD/WN, vitals as above Musculoskeletal Extremities: extremities normal to inspection Skin no rashes, warm and dry Psychiatric A+Ox3, euthymic affect abdomen soft and non-tender. incision c/d/i Results & Data ([facility]) Vital Signs (Past 12 Hours) Vital Signs Temp Pulse Resp BP Pulse Ox O2 Del Method 12/01/21 08:46 37.1 C 93 H 16 120/76 95 Room Air 12/01/21 00:10 36.8 C 68 18 116/72 97 Room Air Laboratory Results Laboratory Results - last 72 hr 11/29/21 11/29/21 11/30/21 07:42 07:45 06:22 WBC 7.49 7.19 RBC 4.15 3.40 L Hgb 11.6 L 9.5 L Hct 35.8 28.8 L MCV 86.3 84.7 MCH 28.0 27.9 MCHC 32.4 33.0 RDW Std Deviation 49.1 H 47.9 H RDW Coeff of Eliza 15.9 H 15.9 H Plt Count 142 120 L MPV 11.7 11.5 Immature Gran % (Auto) 0.5 0.4 Neut % (Auto) 68.7 78.9 Lymph % (Auto) 19.8 11.3 [place] % (Auto) 9.6 7.6 Eos % (Auto) 1.3 1.5 Baso % (Auto) 0.1 0.3 Neut # (Auto) 5.14 5.67 Lymph # (Auto) 1.48 0.81 L [place] # (Auto) 0.72 0.55 Eos # (Auto) 0.10 0.11 Baso # (Auto) 0.01 0.02 Immature Gran # (Auto) 0.04 H 0.03 H Blood Type A Positive Antibody Screen NEGATIVE Crossmatch See Detail 12/01/21 06:40 WBC RBC Hgb 8.6 L Hct 26.9 L MCV MCH MCHC RDW Std Deviation RDW Coeff of Eliza Plt Count MPV Immature Gran % (Auto) Neut % (Auto) Lymph % (Auto) [place] % (Auto) Eos % (Auto) Baso % (Auto) Neut # (Auto) Lymph # (Auto) [place] # (Auto) Eos # (Auto) Baso # (Auto) Immature Gran # (Auto) Blood Type Antibody Screen Crossmatch
[2021-12-01] MEDS ORDERED: bisacodyL 10 MG SUPP PR PRN (12:17)
--- NOTE | 2021-12-07 02:40 | Discharge Summary (DS) ---
DATE OF ADMISSION: 11/29/2021. DATE OF DISCHARGE: 12/01/2021. DETAILS OF ADMISSION: The patient is a 41-year-old G5, P3-0-1-3 at 39 weeks and 5 days of gestation with history of prior 2 C-sections and macrosomia. She was also multiparous and desired permanent st erilization with tubal ligation. She was scheduled for repeat low transverse with bilatera l tubal sterilization on the day of 11/29/2021. She appeared to labor and delivery with no complaint s, no signs or symptoms of labor. heart rate was reassuring. She was taken to the OR for a sc heduled repeat low transverse and bilateral tubal ligation with [place] method. Her surger y was uncomplicated. See dictated operative note for details. She delivered a viable male infant at 11:11 a.m. Apgars were 9/9, weight was 4644 grams. On postop period, the patient was doing well, vital signs stable, afebrile. Urine output was adequate. Tony was discontinued. She was ambulated, tolerated regular diet. She voided without difficulty. She wa s passing gas. She was without problems. Her H and H was 9.5/28.8. Her incision was clean, dry and intact. Abdomen was soft, nontender, nondistended. Bleeding was minimal. On postop day #2, the patient was seen and examined. She was doing well, vital signs stable, afebrile, passing gas, tolerating regular diet, . Pain was under control with pain medications. Her rep eat H and H was 8.6/26.9. Her physical exam was unremarkable. Incision was clean, dry and intact. She decided to go home on postoperative day #2. Discharge instructions were given. Prescriptions we re written for pain. She is to be seen in the office in a week. Job ID: [id number]
== END 2021-12-01 18:50 | disposition home or self-care (01) | DRG 785 ==
LOC: EDSTATUS 07:30 → 4S1 07:32 → 4E1 15:20